=== PATIENT | female | born 1950 | race Caucasian/White ===

== ENCOUNTER 2019-12-08 06:03 | Inpatient (IN) ==
--- NOTE | 2019-12-04 14:36 | Anesthesiology Consultation ---
Date of Service December 04, 2019 Assessment & Plan (1) Encounter for pre-operative examination: Chart Review Chart Review: Acceptable Risk for Surgery and Patient NOT seen in Pre Admission Testing Per nursing assessment 12/04/19, patient resides in [facility]. Has only traveled to [facility] for medical appointments (wore a mask). Pt denies any known contact with PUI/Covid positive patients. No current Covid related symptoms or history of Covid testing History Surgery Operation Date: 12/08/19 10:45 Proposed Procedures p L4-S1 Decompression and Fusion, Spinal Cord Monitoring - Donny Crain DO Height/Weight Height: 5 ft Weight: 48.534 kg Allergies Allergy/AdvReac Type Severity Reaction Status Date / Time No Known Allergies Allergy Verified 12/04/19 13:38 Medications Home Medications Medication Instructions Recorded Confirmed Last Taken atorvastatin 20 mg PO QAM 12/04/19 12/04/19 Unknown calcium carbonate-vitamin D3 1 cap PO QAM 12/04/19 12/04/19 Unknown [Calcium 600 + D(3)] duloxetine 60 mg PO QAM 12/04/19 12/04/19 Unknown etanercept [Enbrel] 50 mg SUBCUT WK 12/04/19 12/04/19 Unknown etodolac 500 mg PO BID 12/04/19 12/04/19 Unknown lisinopril 10 mg PO QAM 12/04/19 12/04/19 Unknown multivitamin 1 tab PO QAM 12/04/19 12/04/19 Unknown omeprazole magnesium [Prilosec OTC] 20 mg PO QAM 12/04/19 12/04/19 Unknown prednisone 5 mg PO QAM 12/04/19 12/04/19 Unknown pregabalin [Lyrica] 75 mg PO BID 12/04/19 12/04/19 Unknown Past Medical History Medical History Chronic back pain Degenerative disc disease Diverticular disease Fallen bladder WEARS PESSARY GERD (gastroesophageal reflux disease) Hyperlipidemia Hypertension Osteoarthritis Past Surgical History Surgical History History of colonoscopy History of hysterectomy History of mandibular surgery PART OF JAW REMOVED ON BOTTOM DUE TO ADVERSE REACTION TO FOSAMAX History of tooth extraction Hx of surgical procedure TUMOR FROM RIGHT BREAST AND LYMPH NODE REMOVED AT SAME TIME 1994 Social History Smoking Status: Current every day smoker tobacco type: cigarettes Smoking cigarettes per day: 1 PPD Do You Dip or Chew Tobacco: No Hx Alcohol Use: No Hx Substance Use: No substance use type: does not use Testing Laboratory Results Laboratory Tests 12/02/19 12/02/19 13:26 13:26 WBC 8.15 Hgb 14.9 Hct 44.9 Plt Count 247 Sodium 138 Potassium 3.9 Chloride 106 Carbon Dioxide 27 BUN 15 Creatinine 0.82 Glucose 117 H 12/02/2019 UA = negative Electrocardiogram Date: 12/02/19 Findings: + NSR @ (82) Right atrial enlargement Chest X-Ray Date: 12/02/19 Findings: + NAD
[~2019-12-08 06:03] MED LIST: ACETAMINOPHEN 500 MG TAB PO SCH; CEFAZOLIN 1000MG 1,000 MG/7.5 ML SYR IV SCH; CeleBREX 200 MG CAP PO SCH; GABAPENTIN 300 MG CAP PO SCH; LR 15ML/HR IV SCH
[2019-12-08] MEDS ORDERED: NEOSTIGMINE METHYLSULFATE 5 MG/5 ML SYR ONE (06:53)
[2019-12-08] MEDS ORDERED: ROCURONIUM BROMIDE 10 MG/ML 5 ML VIAL ONE (06:53)
[2019-12-08] MEDS ORDERED: PROPOFOL IV EMULSION 10 MG/ML 20 ML VIAL IV ONE (06:53)
[2019-12-08] MEDS ORDERED: ONDANSETRON INJ 2 MG/ML 2 ML VIAL ONE (06:53)
[2019-12-08] MEDS ORDERED: LIDOCAINE HCL 2% 2 ML VIAL/AMP(20MG/ML) INFIL ONE (06:53)
[2019-12-08] MEDS ORDERED: DEXAMETHASONE SOD INJ 4 MG/ML VIAL ONE (06:53)
[2019-12-08] MEDS ORDERED: GLYCOPYRROLATE 0.2 MG/ML VIAL ONE (06:53)
[2019-12-08] MEDS ORDERED: HYDROmorphone INJ 2 MG/ML SYR/VIAL ONE (06:54)
[2019-12-08] MEDS ORDERED: BUPIVACAINE/EPINEPHRINE 0.25% 1:200,000 30 ML VIAL ONE (07:02)
[2019-12-08] MEDS ORDERED: BACITRACIN INJ 50,000 UNIT VIAL ONE (07:02)
[2019-12-08] MEDS ORDERED: ATROPINE SULFATE 0.1 MG/ML 10ML SYR IV PRN (07:04)
[2019-12-08] MEDS ORDERED: ePHEDrine sulfate 50 MG/ML AMP IV PRN (07:04)
[2019-12-08] MEDS ORDERED: ONDANSETRON INJ 2 MG/ML 2 ML VIAL IV PRN ×2 (07:04→12:04)
--- NOTE | 2019-12-08 07:40 | History & Physical Bridge Note ---
Date of Service December 08, 2019 History & Physical Bridge Note I have examined the patient, reviewed the History & Physical and in the interval since the performance of the History & Physical I have noted the following changes of clinical significance: no changes noted
--- NOTE | 2019-12-08 07:41 | History & Physical Report ---
Date of Service December 08, 2019 Assessment & Plan (1) Neurogenic claudication due to lumbar spinal stenosis: L4-S1 decompression fusion Present on Admission?: Yes History of Present Illness Chief Complaint: Back and leg pain Primary Care Provider: Darlene Linda DO This is a 68-year-old female that presents with chronic persistent back and leg pain after failing extensive course of nonoperative care she is here for surgical intervention. Allergies Allergy/AdvReac Type Severity Reaction Status Date / Time No Known Allergies Allergy Verified 12/08/19 06:25 Home Medications Home Medications Medication Instructions Recorded Confirmed Type atorvastatin 20 mg PO QAM 12/04/19 12/08/19 History calcium carbonate-vitamin D3 1 cap PO QAM 12/04/19 12/08/19 History [Calcium 600 + D(3)] duloxetine 60 mg PO QAM 12/04/19 12/08/19 History etanercept [Enbrel] 50 mg SUBCUT WK 12/04/19 12/08/19 History etodolac 500 mg PO BID 12/04/19 12/08/19 History lisinopril 10 mg PO QAM 12/04/19 12/08/19 History multivitamin 1 tab PO QAM 12/04/19 12/08/19 History omeprazole magnesium [Prilosec OTC] 20 mg PO QAM 12/04/19 12/08/19 History prednisone 5 mg PO QAM 12/04/19 12/08/19 History pregabalin [Lyrica] 75 mg PO BID 12/04/19 12/08/19 History mecobalamin (vitamin B12) [B12 1,000 mcg PO DAILY 12/08/19 12/08/19 History Active] Past Med/Surg History Medical History Chronic back pain Degenerative disc disease Diverticular disease Fallen bladder WEARS PESSARY GERD (gastroesophageal reflux disease) Hyperlipidemia Hypertension Osteoarthritis Surgical History History of colonoscopy History of hysterectomy History of mandibular surgery PART OF JAW REMOVED ON BOTTOM DUE TO ADVERSE REACTION TO FOSAMAX History of tooth extraction Hx of surgical procedure TUMOR FROM RIGHT BREAST AND LYMPH NODE REMOVED AT SAME TIME 1994 Social History Preferred Language: Maltese Communication Ability: Effective Residential Service Technician Required: No Beliefs That Will Affect Care: None Current Living Situation: Spouse and Family Other Information That Helps Us Care for You: No Feels Safe at Home: Yes Safety Concerns: Feels Safe At This Time Smoking Status: Current every day smoker Tobacco Type: cigarettes ; Cigarettes Per Day: 1 PPD ; Do You Dip or Chew Tobacco: No ; Second Hand Exposure: No ; Tobacco Cessation Education Requested by Patient: No Hx Alcohol Use: No Hx Substance Use: No Physical Exam Physical Exam: Patient is alert and oriented neurologically intact Heart is regular rate and rhythm Lungs clear to auscultation Results & Data Vital Signs (Past 12 Hours) Vital Signs Temp Pulse Resp BP Pulse Ox 12/08/19 06:30 36.8 C 79 18 130/78 99
[2019-12-08] MEDS ORDERED: FLOSEAL HEMOSTATIC MATRIX 10ML TOP ONE (09:47)
--- NOTE | 2019-12-08 10:15 | Operative Report ---
Post Operative Report Pre & Post Diagnosis Operation Date: 12/08/19 07:45 Pre-Op Diagnosis: Lumbar Spinal Stenosis With Neurogenic Claudication Post-Op Diagnosis: Lumbar Spinal Stenosis With Neurogenic Claudication I identified the patient and participated in the time-out.: Yes Procedure Operation Date: 12/08/19 07:45 Actual Procedures #1 lumbar decompression with bilateral medial facetectomies and foraminotomies L3-4, L4-5 and L5-S1. #2 posterior spinal fusion L4-5 L5-S1. #3 placement posterior instrumentation L4-5 L5-S1. #4 interbody fusion L4-5 L5-S1. #5 placement peek cage 8 x 22 mm at L4-5 and 10 x 22 at L5-S1. #6 placement of locally harvested morselized autograft in the posterior lateral gutters per #7 placement infuse collagen sponge, master graft in the posterior lateral gutters and ostial amp and interbody space. Surgeon Donny Crain, Agile Coach Rosita Marie Estimated Blood Loss 100 Findings Consistent with Post-Op Diagnosis Specimens None Indications This is a 68-year-old female that presents with above-mentioned diagnosis after failed extensive course of nonoperative care is here for surgical intervention. Description of Procedure Patient was met with identified informed consent obtained. Patient was then taken to the operative suite underwent an patient placed in a prone position the Amos table on top of the Adarsh frame. All bony prominences well-padded eyes inspected to ensure no external pressure placed upon the. This point the lumbar spine was prepped and draped in normal sterile fashion. Sharp dissection with the assistance of Bovie cautery was performed down to and exposing the lamina transverse processes of L4-L5 and the sacral ala bilaterally. From a caudal cephalad fashion complete laminectomy of L5 L4 was performed including partial laminectomy of L3 including bilateral medial facetectomies and foraminotomies addressing severe spinal stenosis. Pedicle screws were then placed in L4-L5 and the S1 levels bilaterally. And by way of a transforaminal approach on the right a complete discectomy was performed endplates curetted to subcortical any bone and a 10 x 22 mm peek cage filled with osteo-bone graft tapped in position. I then proceeded to L3-4 on the left and again a complete discectomy performed th rough a transforaminal approach. Endplates curetted to subcortical bleeding bone and an 8 x 22 mm peek cage filled with osteo-bone graft tapped in position. The proper sized rods were then placed locked into final position bilaterally. The transverse processes of L4 and L5 and the sacral ala burred to subcortical bleeding bone. Infuse collagen sponge master graft local autograft placed in the posterior lateral gutters. 15 round DONN drain inserted. The incision was then closed with 1 Vicryl in the fascia 2-0 Vicryl subcutaneously and 4 Monocryl for final skin closure. Steri-Strip sterile dressings placed. Patient will continue PACU stable condition. Please note spinal cord monitoring was utilized that the procedure no changes noted. Lastly Rosita Marie was present at the entire procedure involved the patient positioning complex portions of the surgery and final skin closure. I attest to the content of the Intraoperative Record and any orders documented therein. Any exceptions are noted below.
--- NOTE | 2019-12-08 10:22 | Fluoroscopy Report ---
FL lumbar spine 2-3V CLINICAL HISTORY: L4-S1 DECOMPRESSION AND FUSION COMPARISON STUDY: FLUOROSCOPY TIME: 26 seconds. NUMBER OF FLUOROSCOPIC IMAGES: 2 FINDINGS: There is a lumbar scoliosis. Intraoperative fluoroscopic spot images reveal postsurgical ch anges of discectomies interbody fusions at the L4-5 and L5-S1 levels. There is posterior pedicle scre w fixation. IMPRESSION: Postsurgical changes of an L4-S1 spinal decompression and fusion. ACT 112: Negative or not required by law. Electronically signed by: Eric Murray M.D. 12/08/2019 10:21 AM
[2019-12-08] MEDS: fentaNYL citrate 100 MCG/2 ML VIAL IV PRN ×4 (11:01→11:16)
--- NOTE | 2019-12-08 11:58 | Anesthesiology Progress Note ---
Date of Service December 08, 2019 Anesthesia Post Procedure Vital Signs Vital Signs: Temp Pulse Pulse Resp BP Pulse Ox 12/08/19 11:40 98.8 F 96 H 17 106/60 98 12/08/19 11:30 98.8 F 96 H 14 121/62 96 12/08/19 11:20 91 H 11 L 110/64 97 12/08/19 11:10 98 H 13 121/66 98 12/08/19 11:00 100 H 19 122/66 97 12/08/19 10:51 96.8 F L 98 H 16 146/78 H 100 12/08/19 06:30 98.2 F 79 18 130/78 99 Pain Intensity Posterior Back: Pain Intensity: 3 Transfer of Care Handoff Completed per policy Notes Mental Status: alert / awake / arousable and participated in evaluation Patient Amnestic to Procedure: Yes Nausea / Vomiting: adequately controlled Pain: adequately controlled Airway Patency, RR, SpO2: stable & adequate BP & HR: stable & adequate Hydration State: stable & adequate Anesthetic Complications: no major complications apparent and Pt Satisfied with anesthetic care
[2019-12-08] MEDS ORDERED: MAGNESIUM HYDROXIDE SUSP 30 ML UDC PO PRN (12:04)
[2019-12-08] MEDS ORDERED: ONDANSETRON 4 MG OD TAB PO PRN (12:04)
[2019-12-08] MEDS ORDERED: DO NOT ADMINISTER FLU VACCINE PRN (12:04)
[2019-12-08] MEDS ORDERED: NALOXONE HCL 0.4 MG/1 ML VIAL/CARP IV PRN (12:04)
[2019-12-08] MEDS ORDERED: METOCLOPRAMIDE HCL INJ 5 MG/ML 2 ML VIAL IV PRN (12:04)
[2019-12-08] MEDS ORDERED: SOD PHOSPHATE/SOD BIPHOSPHATE ENEMA 132 ML BTL PR PRN (12:04)
[2019-12-08] MEDS ORDERED: ACETAMINOPHEN 500 MG TAB PO PRN (12:04)
[2019-12-08] MEDS ORDERED: HYDROmorphone INJ 0.5 MG/0.5 ML SYR IV PRN (12:04)
[2019-12-08] MEDS ORDERED: ALUMINUM/MAGNESIUM SUSP 30 ML UDC PO PRN (12:04)
[2019-12-08] MEDS ORDERED: bisacodyL 10 MG SUPP PR PRN (12:04)
[2019-12-08] MEDS ORDERED: LORazepam 0.5 MG/1 ML VIAL IV PRN (12:04)
[2019-12-08] MEDS ORDERED: DO NOT ADMINISTER PNEUMOCOCCAL VACCINE PRN (12:04)
[2019-12-08] MEDS ORDERED: LORazepam 0.5 MG TAB PO PRN (12:04)
[2019-12-08] MEDS ORDERED: HYDROmorphone INJ 1 MG/ML SYRINGE IV PRN (12:04)
[2019-12-08] MEDS ORDERED: PROMETHAZINE HCL 12.5 MG in SODIUM CHLORIDE 0.9% 50 ML IV PRN (12:04)
[2019-12-08] MEDS ORDERED: ACETAMINOPHEN 1,000 MG/100 ML VIAL IV PRN (12:04)
[2019-12-08] MEDS ORDERED: FAMOTIDINE 20 MG TAB PO PRN (12:04)
[2019-12-08] MEDS: LACTATED RINGER'S 1,000 ML IV SCH ×2 (13:01→20:43)
--- NOTE | 2019-12-08 13:40 | Hospitalist Consultation ---
Date of Consultation December 08, 2019 Assessment & Plan (1) S/P spinal surgery: (2) Neurogenic claudication due to lumbar spinal stenosis: This is a 68-year-old female with a PMH of hypertension, hyperlipidemia, DDD, psoriatic arthritis on prednisone, tobacco use disorder and other medical problems listed below who is POD#0 s/p lumbar decompression and fusion L3-S1. -POD#0 s/p lumbar decompression and fusion L3-S1 by Dr. Crain. -Patient is feeling well postoperatively -Per ortho for pain control, wound care, anticoagulation and activities -Monitor H&H (EBL: 100ml, DONN output to date: 240ml), continue incentive spirometry, PT/OT when appropriate (3) Hypotension: Patient with positional lightheadedness following surgery. BP currently 98/63. Will increase LR to 125ml/hr and monitor BP closely -Caution with giving narcotics in setting of lower BP -Will also give stress dose of IV hydrocortisone 100mg Q8H with plans to wean tomorrow (4) Psoriatic arthritis: Follows with Dr. Weaver. Takes Enbrel weekly on Sundays, 5mg prednisone daily -Did not take prednisone prior to surgery but was given 8mg decadron (5) Hypertension: BP 98/63 post operatively. Will hold AM dose of lisinopril for now - re- evaluate in AM (6) Hyperlipidemia: Continue atorvastatin (7) GERD (gastroesophageal reflux disease): Continue omeprazole (8) Tobacco use disorder: Nicotine patch ordered PCP: Maddi Dispo: Per primary service Patient seen in collaboration with Dr. Bajwa. Please see addendum. Supervising Physician Co-Signing Physician Notes ATTENDING ADDENDUM: this is a 68 yo F underwent elective spinal decompression surgery lumber spinal stenosis , with neurogenic claudication pt is on chronic PO prednisone for Psoriatic arthritis post op brief epidose of hypotension noted , pt remains asymptomatic stress dose of Hydrocortisone ordered should be able to wean off in next 48 hrs post op and resume PO Josh Bajwa MD History of Present Illness Reason for Consultation: Postop medical management Attending Physician: Donny Crain DO History of Present Illness This is a 68-year-old female with a PMH of hypertension, hyperlipidemia, DDD, psoriatic arthritis on prednisone, tobacco use disorder and other medical problems listed below who is POD#0 s/p lumbar decompression and fusion L3-S1. Patient is feeling well postoperatively. Endorses some surgical site pain but denies dizziness, headache, confusion, chest pain, shortness of breath, nausea, vomiting, abdominal pain, dysuria, diarrhea or constipation. Does have some lightheadedness when she sits up quickly but denies any visual changes. Follows with Dr. Weaver for treatment of psoriatic arthritis with multiple medication s including chronic 5 mg p.o. prednisone daily. PCP is Dr. Linda. Denies any fever, chills, cough, congestion or wheezing. Allergies Allergy/AdvReac Type Severity Reaction Status Date / Time No Known Allergies Allergy Verified 12/08/19 06:25 Home Medications Home Medications Medication Instructions Recorded Confirmed Type atorvastatin 20 mg PO QAM 12/04/19 12/08/19 History calcium carbonate-vitamin D3 1 cap PO QAM 12/04/19 12/08/19 History [Calcium 600 + D(3)] duloxetine 60 mg PO QAM 12/04/19 12/08/19 History etanercept [Enbrel] 50 mg SUBCUT WK 12/04/19 12/08/19 History etodolac 500 mg PO BID 12/04/19 12/08/19 History lisinopril 10 mg PO QAM 12/04/19 12/08/19 History multivitamin 1 tab PO QAM 12/04/19 12/08/19 History omeprazole magnesium [Prilosec OTC] 20 mg PO QAM 12/04/19 12/08/19 History prednisone 5 mg PO QAM 12/04/19 12/08/19 History pregabalin [Lyrica] 75 mg PO BID 12/04/19 12/08/19 History mecobalamin (vitamin B12) [B12 1,000 mcg PO DAILY 12/08/19 12/08/19 History Active] oxycodone 5 mg PO Q6H PRN #30 tab 12/09/19 Rx tramadol 50 mg PO Q6H PRN #30 tab 12/09/19 Rx Patient History Medical History (Updated 12/08/19 @ 13:48 by Lindsay Posey PA-C) Chronic back pain Degenerative disc disease Diverticular disease Fallen bladder WEARS PESSARY GERD (gastroesophageal reflux disease) (Chronic) Hyperlipidemia (Chronic) Hypertension (Chronic) Psoriatic arthritis (Chronic) Tobacco use disorder (Chronic) Surgical History History of colonoscopy History of hysterectomy History of mandibular surgery PART OF JAW REMOVED ON BOTTOM DUE TO ADVERSE REACTION TO FOSAMAX History of tooth extraction Hx of surgical procedure TUMOR FROM RIGHT BREAST AND LYMPH NODE REMOVED AT SAME TIME 1994 Family History Other Heart disease Social History (Updated 12/08/19 @ 13:37 by Lindsay Posey PA-C) Preferred Language: Luxembourger Communication Ability: Effective Deckhand Crab Boat Required: No Beliefs That Will Affect Care: None marital status: Current Living Situation: Spouse and Family Other Information That Helps Us Care for You: No Feels Safe at Home: Yes Safety Concerns: Feels Safe At This Time Smoking Status: Current every day smoker Tobacco Type: cigarettes ; Cigarettes Per Day: 10 ; Do You Dip or Chew Tobacco: No ; Second Hand Exposure: No ; Tobacco Cessation Education Requested by Patient: No Hx Alcohol Use: No Hx Substance Use: No Review of Systems Review of Systems: At least ten systems reviewed and negative except as noted in the HPI. Physical Exam Physical Exam: General Appearance: WD/WN, vitals as above, NAD, sitting up in bed, pleasant, conversing easily Head: normocephalic, atraumatic Eyes: normal inspection, conjunctivae normal, anicteric sclerae ENT: external ear and nose normal, oropharynx normal Neck: trachea midline, no thyromegaly, normal visual inspection Respiratory: normal respiratory effort, lungs clear to auscultation, no wheeze, rales, rhonchi Cardiovascular: regular rate, rhythm, no murmur appreciated, normal peripheral pulses Abdomen/GI: normal bowel sounds, soft, nontender, no hepatosplenomegaly : + Bradley catheter Extremities/Musculoskeletal: +Lumbosacral dressing, DONN drain visualized. No cyanosis or clubbing, extremities motor strength 5/5 Neurologic: PERRL, EOMI, CN's II-XI intact bilaterally and moves all extremities Psychiatric: A+Ox3, euthymic affect Skin: no rashes, normal color, warm/dry Results & Data Results & Data ([facility]) Vital Signs (Past 12 Hours) Vital Signs Temp Pulse Pulse Resp BP Pulse Ox 12/08/19 12:56 95 H 16 98/63 L 95 12/08/19 12:21 95 H 16 99/58 L 96 12/08/19 11:45 36.7 C 100 H 16 99/61 L 95 12/08/19 11:40 37.1 C 96 H 17 106/60 98 12/08/19 11:30 37.1 C 96 H 14 121/62 96 12/08/19 11:20 91 H 11 L 110/64 97 12/08/19 11:10 98 H 13 121/66 98 12/08/19 11:00 100 H 19 122/66 97 12/08/19 10:51 36.0 C L 98 H 16 146/78 H 100 12/08/19 06:30 36.8 C 79 18 130/78 99 Laboratory Results Short CBC 12/08/19 Range/Units 06:28 Blood Type O Positive Antibody Screen NEGATIVE Crossmatch See Detail
[2019-12-08] MEDS: TRAMADOL HCL 50 MG TABLET PO PRN ×2 (13:49→19:42)
[2019-12-08] MEDS: NICOTINE 14 MG/24 HR PATCH TD SCH (13:50)
[2019-12-08] MEDS: HYDROCORTISONE SOD 100 MG in SYRINGE 0 ML IV SCH ×2 (15:20→23:26)
[2019-12-08] MEDS: CEFAZOLIN 1000MG 1,000 MG/7.5 ML SYR IV SCH ×2 (15:54→23:26)
[2019-12-08] MEDS: DOCUSATE SODIUM/SENNA 50/8.6MG TAB PO SCH (20:43)
[2019-12-08] MEDS: PREGABALIN 75 MG CAP PO SCH (20:43)
[2019-12-08] MEDS: OXYCODONE HCL IR 5 MG TAB (IMMEDIATE RELEASE) PO PRN (23:30)
[2019-12-09] MEDS: OXYCODONE HCL IR 5 MG TAB (IMMEDIATE RELEASE) PO PRN ×4 (06:16→22:22)
[2019-12-09] MEDS: HYDROCORTISONE SOD 100 MG in SYRINGE 0 ML IV SCH (06:16)
[2019-12-09] MEDS: POLYETHYLENE (MIRALAX) 17 GM PACK PO SCH ×4 (06:16→23:17)
[2019-12-09 06:26] LABS: Basophils # (auto) 0.01 K/uL (0-0.2); Basophils % (auto) 0.1 %; Eosinophils # (auto) 0.01 K/uL (0-0.5); Eosinophils % (auto) 0.1 %; Hematocrit (blood only) 34.3 % (37-47); Hemoglobin 11.2 g/dL (12.0-16.0); Immature Granulocytes # (auto) 0.02 K/uL (0.00-0.02); Immature Granulocytes % (auto) 0.2 %; Lymphocytes # (auto) 0.88 K/uL (1.2-3.4); Lymphocytes % (auto) 7.4 %; Mean Corpuscular Hemoglobin 31.2 pg (25-34); Mean Corpuscular Hgb Conc 32.7 g/dL (32-36); Mean Corpuscular Volume 95.5 fL (80-100); Mean Platelet Volume 9.6 fL (7.4-10.4); Monocytes # (auto) 0.93 K/uL (0.11-0.59); Monocytes % (auto) 7.8 %; Neutrophils # (auto) 10.04 K/uL (1.4-6.5); Neutrophils % (auto) 84.4 %; Platelet Count 187 K/uL (130-400); RDW Coefficient of Variation 13.7 % (11.5-14.5); RDW Standard Deviation 48.4 fL (36.4-46.3); Red Blood Count 3.59 M/uL (4.2-5.4); White Blood Count 11.89 K/uL (4.8-10.8)
[2019-12-09 06:43] LABS: BUN Creatinine Ratio 9.6 (10-20); Calcium 8.3 mg/dl (8.5-10.1); Creatinine Clr Calc Pharmacy 46.4 ml/min; Est GFR (African American) 85.3; Est GFR (Non-African American) 73.6
--- NOTE | 2019-12-09 08:04 | Hospitalist Progress Note ---
Date of Service December 09, 2019 Assessment & Plan (1) S/P spinal surgery: (2) Neurogenic claudication due to lumbar spinal stenosis: This is a 68-year-old female with a PMH of hypertension, hyperlipidemia, DDD, psoriatic arthritis on prednisone, tobacco use disorder and other medical problems listed below who is POD#1 s/p lumbar decompression and fusion L3-S1. -POD#1 s/p lumbar decompression and fusion L3-S1 by Dr. Crain. -Patient is feeling well postoperatively -Per ortho for pain control, wound care, anticoagulation and activities -Monitor H&H, continue incentive spirometry, pt working w/PT/OT Anemia Acute blood loss anemia Hgb down to 11.2 (from 14.9 pre-op), likely postop, acute blood loss anemia, and d/t IV fluids. - monitor H&H (3) Hypotension: Patient with positional lightheadedness following surgery. BP at that time 98/63. Increased LR to 125ml/hr at that time -Caution with giving narcotics in setting of lower BP -Also gave stress dose of IV hydrocortisone 100mg Q8H with plans to wean today -BP this AM 113/70, no lightheadedness, or dizziness, currently walking w/ PT -monitor BP (4) Psoriatic arthritis: Follows with Dr. Weaver. Takes Enbrel weekly on Sundays, 5mg prednisone daily -Did not take prednisone prior to surgery but was given 8mg decadron (5) Hypertension: BP 98/63 post operatively. Hold AM dose of lisinopril for now - re- evaluate in AM (6) Hyperlipidemia: Continue atorvastatin (7) GERD (gastroesophageal reflux disease): Continue omeprazole (8) Tobacco use disorder: Nicotine patch ordered PCP: Maddi Dispo: Per primary service Admission and Anticipated Discharge Date Admission Date: December 08, 2019 Subjective Hgb down to 11.2 (from 14.9 pre-op), likely postop, acute blood loss anemia, and d/t IV fluids. WBC mildly elevated at 11.9, likely due to steroids. Started on hydrocortisone yesterday due to hypotension. Holding lisinopril this morning. Pt seen while working with PT, pt is walking w/ walker, no complaints. She is urinating but no BM yet. No dizziness, lightheadedness, shortness of breath, or chest pain. No fevers or chills. Review of Systems Review of Systems: All systems reviewed & are unremarkable except as noted in HPI & below Constitutional: no fever and no chills Respiratory: no cough and no dyspnea Cardiovascular: no chest pain and no palpitations Gastrointestinal: no abdominal pain, no nausea and no vomiting Physical Exam Physical Exam: General Appearance: elderly female walking w/ PT w/ walker, in NAD, WD/WN, vitals as above, pleasant, conversing easily Head: normocephalic, atraumatic Eyes: normal inspection, conjunctivae normal, anicteric sclerae ENT: external ear and nose normal, oropharynx normal Neck: trachea midline, no thyromegaly, normal visual inspection Respiratory: normal respiratory effort, lungs clear to auscultation, no wheeze, rales, rhonchi Cardiovascular: regular rate, rhythm, no murmur appreciated, normal peripheral pulses Abdomen/GI: normal bowel sounds, soft, nontender, nondistended : Bradley catheter removed Extremities/Musculoskeletal: +Lumbosacral dressing, DONN drain visualized. No cya nosis or clubbing, extremities motor strength 5/5, walking w/ w/o much difficulty Neurologic: PERRL, EOMI, CN's II-XI intact bilaterally and moves all extremities Psychiatric: A+Ox3, euthymic affect Skin: no rashes, normal color, warm/dry Results & Data Results & Data ([facility]) Vital Signs (Past 12 Hours) Vital Signs Temp Pulse Resp BP Pulse Ox 12/09/19 07:16 36.6 C 71 18 113/70 99 12/09/19 03:12 97 12/09/19 03:11 37.1 C 78 16 117/66 87 L 12/08/19 23:28 36.9 C 78 14 106/63 93 Laboratory Results 12/09/19 12/09/19 12/09/19 Range/Units 06:00 06:00 06:00 WBC 11.89 H (4.8-10.8) K/uL RBC 3.59 L (4.2-5.4) M/uL Hgb 11.2 L (12.0-16.0) g/dL Hct 34.3 L (37-47) % MCV 95.5 (80-100) fL MCH 31.2 (25-34) pg MCHC 32.7 (32-36) g/dL RDW Std Deviation 48.4 H (36.4-46.3) fL RDW Coeff of Emma 13.7 (11.5-14.5) % Plt Count 187 (130-400) K/uL MPV 9.6 (7.4-10.4) fL Immature Gran % (Auto) 0.2 % Neut % (Auto) 84.4 % Lymph % (Auto) 7.4 % Cooke % (Auto) 7.8 % Eos % (Auto) 0.1 % Baso % (Auto) 0.1 % Immature Gran # (Auto) 0.02 (0.00-0.02) K/uL Neut # (Auto) 10.04 H (1.4-6.5) K/uL Lymph # (Auto) 0.88 L (1.2-3.4) K/uL Cooke # (Auto) 0.93 H (0.11-0.59) K/uL Eos # (Auto) 0.01 (0-0.5) K/uL Baso # (Auto) 0.01 (0-0.2) K/uL Sodium 140 (136-145) mmol/L Potassium 4.0 (3.5-5.1) mmol/L Chloride 107 (98-107) mmol/L Carbon Dioxide 30 (21-32) mmol/L Anion Gap 3.0 (3-11) BUN 8 (7-18) mg/dl Creatinine 0.81 (0.6-1.2) mg/dl Est Cr Clr Drug Dosing 46.4 ml/min Est GFR ( Amer) 85.3 Est GFR (Non-Af Amer) 73.6 BUN/Creatinine Ratio 9.6 L (10-20) Glucose 113 H (70-99) mg/dl Calcium 8.3 L (8.5-10.1) mg/dl Hepatitis C Ab Screen Pending Medications Administered Current Inpatient Medications Acetaminophen (Tylenol) 1,000 mg PO Q8H PRN PRN Reason: MILD Pain Scale 1,2,3 & Pre PT Stop: 01/07/20 12:03 Al Hydrox/Mg Hydrox/Simethicone (Maalox) 30 ml PO Q6H PRN PRN Reason: Dyspepsia Stop: 01/07/20 12:03 Atorvastatin Calcium (Lipitor) 20 mg PO QAM [facility] Stop: 01/08/20 08:59 Bisacodyl (Dulcolax) 10 mg SC DAILY PRN PRN Reason: Constipation Stop: 01/07/20 12:03 Cyanocobalamin (Vitamin B-12) 1,000 mcg PO DAILY [facility] Stop: 01/08/20 08:59 Diphenhydramine HCl (Benadryl Capsule) 25 mg PO Q6H PRN PRN Reason: Allergic Rhinitis/Insomnia Stop: 01/07/20 12:03 Duloxetine HCl (Cymbalta) 60 mg PO QAM [facility] Stop: 01/08/20 08:59 Famotidine (Pepcid) 20 mg PO Q12H PRN PRN Reason: Dyspepsia Stop: 01/07/20 12:03 Last Admin: 12/08/19 19:42 Dose: 20 mg Documented by: Hydromorphone HCl (Dilaudid) 0.5 mg IV Q3H PRN PRN Reason: MOD pain (scale 4-6) & Pre PT Stop: 12/22/19 12:03 Hydromorphone HCl (Dilaudid) 1 mg IV Q3H PRN PRN Reason: severe pain (scale 7-10) Stop: 12/22/19 12:03 Hydroxyzine HCl (Vistaril) 25 mg PO Q8H PRN PRN Reason: Anxiety Stop: 01/07/20 12:03 Acetaminophen (Ofirmev) 1,000 mg in 100 mls @ 400 mls/hr IV Q8H PRN PRN Reason: MILD Pain Rating 1,2,3 Stop: 12/09/19 12:03 Promethazine HCl 12.5 mg/ (Sodium Chloride) 50.5 mls @ 204 mls/hr IV Q6H PRN PRN Reason: Nausea &/or Vomiting Stop: 01/07/20 12:03 Lorazepam (Ativan) 0.5 mg in 1 mls @ 0.5 mls/min IV Q8H PRN PRN Reason: Sedation/Anxiety Stop: 01/07/20 12:03 Hydrocortisone Sodium (Succinate 100 mg/ Syringe) 2 mls @ 4 mls/min IV Q8H [facility] Stop: 01/07/20 14:59 Last Admin: 12/09/19 06:16 Dose: 4 mls/min Documented by: Influenza Virus Vaccine Quadrival (Flu Vaccine, Do Not Administer) 1 ea N/A PRN PRN PRN Reason: Notification Stop: 01/07/20 12:03 [facility]) [facility] Stop: 01/08/20 08:59 Lorazepam (Ativan) 0.5 mg PO Q8H PRN PRN Reason: Sedation/Anxiety Stop: 01/07/20 12:03 Magnesium Hydroxide (Milk Of Magnesia) 30 ml PO DAILY PRN PRN Reason: Constipation Stop: 01/07/20 12:03 Metoclopramide HCl (Reglan) 10 mg IV Q6H PRN PRN Reason: Nausea &/or Vomiting Stop: 01/07/20 12:03 Miscellaneous (Remove Nicoderm Patch) 1 ea N/A DAILY@0859 [facility] Stop: 01/08/20 08:58 Multivitamins (Multivitamin Tab) [facility] Stop: 01/08/20 08:59 Multivitamins/Minerals (Caltrate Plus) [facility] Stop: 01/08/20 08:59 Naloxone HCl (Narcan) 0.1 mg IV Q5M PRN; Protocol PRN Reason: Oversedation/Resp Depression Stop: 01/07/20 12:03 Nicotine (Nicoderm Cq) 14 mg TD [facility] Stop: 01/07/20 13:29 Last Admin: 12/08/19 13:50 Dose: Not Given Documented by: Ondansetron HCl (Zofran) 4 mg IV Q6H PRN PRN Reason: Nausea &/or Vomiting Stop: 01/07/20 12:03 Ondansetron HCl (Zofran Odt) 4 mg PO Q6H PRN PRN Reason: Nausea Stop: 01/07/20 12:03 Oxycodone HCl (Roxicodone Immediate Rel) 5 - 10 mg PO Q4H PRN PRN Reason: Moderate-Severe Pain & Pre PT Stop: 12/22/19 12:03 Last Admin: 12/09/19 06:16 Dose: 10 mg Documented by: Pantoprazole Sodium (Protonix) 40 [facility] Stop: 01/08/20 08:59 Pneumococcal Polyvalent Vaccine (Pneumococcal Vacc, Do Not Administer) 1 ea N/A PRN PRN PRN Reason: Notification Stop: 01/07/20 12:03 Polyethylene Glycol (Miralax Powder Packet) 17 gm PO Q6 [facility] Stop: 01/08/20 05:59 Last Admin: 12/09/19 06:16 Dose: Not Given Documented by: Prednisone (Prednisone) 5 mg PO QAM [facility] Stop: 01/08/20 08:59 Pregabalin (Lyrica) 75 mg PO BID [facility] Stop: 01/07/20 20:59 Last Admin: 12/08/19 20:43 Dose: 75 mg Documented by: Senna/Docusate Sodium (Senokot S) 2 tab PO HS [facility] Stop: 01/07/20 20:59 Last Admin: 12/08/19 20:43 Dose: 2 tab Documented by: Sodium Biphosphate/Sodium Phosphate (Fleet Enema) 132 ml SC ONE PRN PRN Reason: Constipation Stop: 01/07/20 12:03 Tramadol HCl (Ultram) 50 - 100 mg PO Q4H PRN PRN Reason: Moderate-Severe Pain & Pre PT Stop: 01/07/20 12:03 Last Admin: 12/08/19 19:42 Dose: 100 mg Documented by:
[2019-12-09] MEDS: DULOXETINE HCL 60 MG CAP PO SCH (08:52)
[2019-12-09] MEDS: CALCIUM 600MG + VIT D 400 IU TAB PO SCH (08:52)
[2019-12-09] MEDS: predniSONE 5 MG TAB PO SCH (08:53)
[2019-12-09] MEDS: MULTIVITAMIN TAB PO SCH (08:53)
[2019-12-09] MEDS: PANTOprazole 40 MG TAB PO SCH (08:53)
[2019-12-09] MEDS: ATORVASTATIN 20 MG TAB PO SCH (08:53)
[2019-12-09] MEDS: NICOTINE 14 MG/24 HR PATCH TD SCH (08:53)
[2019-12-09] MEDS: PREGABALIN 75 MG CAP PO SCH ×2 (08:53→20:23)
[2019-12-09] MEDS: CYANOCOBALAMIN 500 MCG TABLET (VITAMIN B-12) PO SCH (08:54)
[2019-12-09] MEDS ORDERED: lisinopriL 10 MG TAB PO SCH (09:00)
--- NOTE | 2019-12-09 10:05 | Orthopedic Progress Note ---
Date of Service December 09, 2019 Assessment & Plan (1) Neurogenic claudication due to lumbar spinal stenosis: At this time we will continue physical therapy monitor her DONN output hopefully discharge home in the next few days. Present on Admission?: Yes Admission and Anticipated Discharge Date Admission Date: December 08, 2019 Subjective Back pain controlled leg symptoms markedly improved Physical Exam Physical Exam: Patient is in the chair at the bedside. She is good strength testing. Appears comfortable. Results & Data ([facility]) Vital Signs (Past 12 Hours) Vital Signs Temp Pulse Resp BP Pulse Ox 12/09/19 07:16 36.6 C 71 18 113/70 99 12/09/19 03:12 97 12/09/19 03:11 37.1 C 78 16 117/66 87 L 12/08/19 23:28 36.9 C 78 14 106/63 93
[2019-12-09] MEDS: DOCUSATE SODIUM/SENNA 50/8.6MG TAB PO SCH (20:23)
[2019-12-10] MEDS: POLYETHYLENE (MIRALAX) 17 GM PACK PO SCH ×2 (05:36→11:17)
[2019-12-10] MEDS: OXYCODONE HCL IR 5 MG TAB (IMMEDIATE RELEASE) PO PRN ×2 (05:45→11:18)
[2019-12-10 06:56] LABS: Hematocrit (blood only) 33.7 % (37-47); Hemoglobin 11.1 g/dL (12.0-16.0); Mean Corpuscular Hemoglobin 31.4 pg (25-34); Mean Corpuscular Hgb Conc 32.9 g/dL (32-36); Mean Corpuscular Volume 95.5 fL (80-100); Mean Platelet Volume 9.2 fL (7.4-10.4); Platelet Count 174 K/uL (130-400); RDW Coefficient of Variation 13.9 % (11.5-14.5); RDW Standard Deviation 48.7 fL (36.4-46.3); Red Blood Count 3.53 M/uL (4.2-5.4); White Blood Count 8.12 K/uL (4.8-10.8)
[2019-12-10 07:32] LABS: BUN Creatinine Ratio 15.1 (10-20); Calcium 8.4 mg/dl (8.5-10.1); Creatinine Clr Calc Pharmacy 50.8 ml/min; Est GFR (African American) 95.1; Est GFR (Non-African American) 82.1; Magnesium 1.9 mg/dl (1.8-2.4); Phosphorus 1.9 mg/dl (2.5-4.9); Potassium 3.7 mmol/L (3.5-5.1)
[2019-12-10] MEDS ORDERED: POTASSIUM PHOS 3 MMOL/1 ML INFUSION IV STA (07:45)
--- NOTE | 2019-12-10 07:47 | Hospitalist Progress Note ---
Date of Service December 10, 2019 Assessment & Plan (1) S/P spinal surgery: (2) Neurogenic claudication due to lumbar spinal stenosis: This is a 68-year-old female with a PMH of hypertension, hyperlipidemia, DDD, psoriatic arthritis on prednisone, tobacco use disorder and other medical problems listed below who is POD#2 s/p lumbar decompression and fusion L3-S1. -POD#2 s/p lumbar decompression and fusion L3-S1 by Dr. Crain. -Patient is feeling well postoperatively -Per ortho for pain control, wound care, anticoagulation and activities -Monitor H&H, continue incentive spirometry, pt working w/PT/OT Anemia Acute blood loss anemia Hgb down to 11.2 (from 14.9 pre-op), likely postop, acute blood loss anemia, and d/t IV fluids. - monitor H&H, hemoglobin above 11, stable from yesterday (3) Hypotension: Patient with positional lightheadedness following surgery. BP at that time 98/63. Increased LR to 125ml/hr at that time -Caution with giving narcotics in setting of lower BP -Also gave stress dose of IV hydrocortisone 100mg Q8H, stopped yesterday, blood pressure within normal limits -Held lisinopril during this admission -no lightheadedness, or dizziness, even when walking w/ PT -Advised patient to hold lisinopril for next couple of days. She has blood pressure cuff at home, so she can check her blood pressure. Advised her not to take medication if her systolic blood pressure is lower than 110. Also advised the patient to contact her primary care doctor on Saturday and review her blood pressure numbers. (4) Psoriatic arthritis: Follows with Dr. Weaver. Takes Enbrel weekly on Sundays, 5mg prednisone daily -Did not take prednisone prior to surgery but was given 8mg decadron (5) Hypertension: BP 98/63 post operatively. Lisinopril held during his admission BP this morning 103/62 (6) Hyperlipidemia: Continue atorvastatin (7) GERD (gastroesophageal reflux disease): Continue omeprazole (8) Tobacco use disorder: Nicotine patch ordered Hypokalemia, hypophosphatemia -Likely secondary to poor oral intake during admission, and IV fluids -Replaced -Continue to follow-up as outpatient PCP: Maddi Dispo: Per primary service Admission and Anticipated Discharge Date Admission Date: December 08, 2019 Subjective No acute is overnight. Patient sitting up in bed, in no acute distress. Hemoglobin above 11, stable from yesterday. Blood pressure within normal limits, hydrocortisone stopped yesterday. Discussed with the patient to hold lisinopril for next couple of days. And check blood pressure at home. Recommend to keep track of blood pressure numbers and discuss them with primary care doctor on Saturday. She should not take the medication if her systolic blood pressure is below 110. Patient denies any fevers, chills, chest pain, shortness of breath, dizziness, lightheadedness, abdominal pain, nausea or vomiting. Review of Systems Review of Systems: All systems reviewed & are unremarkable except as noted in HPI & below Constitutional: no fever and no chills Respiratory: no cough and no dyspnea Cardiovascular: no chest pain and no palpitations Gastrointestinal: no abdominal pain, no nausea and no vomiting Physical Exam Physical Exam: General Appearance: elderly female sitting up in bed, in NAD, WD/WN, vitals as above, pleasant, conversing easily Head: normocephalic, atraumatic Eyes: normal inspection, conjunctivae normal, anicteric sclerae ENT: external ear and nose normal, oropharynx normal Neck: trachea midline, no thyromegaly, normal visual inspection Respiratory: normal respiratory effort, lungs clear to auscultation, no wheeze, rales, rhonchi Cardiovascular: regular rate, rhythm, no murmur appreciated, normal peripheral pulses Abdomen/GI: normal bowel sounds, soft, nontender, nondistended Extremities/Musculoskeletal: +Lumbosacral dressing, DONN drain visualized. No cyanosis or clubbing, extremities motor strength 5/5, walking w/ w/o much difficulty Neurologic: PERRL, EOMI, CN's II-XI intact bilaterally and moves all extremities Psychiatric: A+Ox3, euthymic affect Skin: no rashes, normal color, warm/dry Results & Data Results & Data ([facility]) Vital Signs (Past 12 Hours) Vital Signs Temp Pulse Resp BP Pulse Ox 12/09/19 23:47 36.8 C 87 18 121/71 94 Laboratory Results 12/10/19 12/10/19 12/09/19 Range/Units 06:44 06:44 06:00 WBC 8.12 (4.8-10.8) K/uL RBC 3.53 L (4.2-5.4) M/uL Hgb 11.1 L (12.0-16.0) g/dL Hct 33.7 L (37-47) % MCV 95.5 (80-100) fL MCH 31.4 (25-34) pg MCHC 32.9 (32-36) g/dL RDW Std Deviation 48.7 H (36.4-46.3) fL RDW Coeff of Emma 13.9 (11.5-14.5) % Plt Count 174 (130-400) K/uL MPV 9.2 (7.4-10.4) fL Sodium 140 (136-145) mmol/L Potassium 3.7 (3.5-5.1) mmol/L Chloride 105 (98-107) mmol/L Carbon Dioxide 32 (21-32) mmol/L Anion Gap 3.0 (3-11) BUN 11 (7-18) mg/dl Creatinine 0.74 (0.6-1.2) mg/dl Est Cr Clr Drug Dosing 50.8 ml/min Est GFR ( Amer) 95.1 Est GFR (Non-Af Amer) 82.1 BUN/Creatinine Ratio 15.1 (10-20) Glucose 104 H (70-99) mg/dl Calcium 8.4 L (8.5-10.1) mg/dl Phosphorus 1.9 L (2.5-4.9) mg/dl Magnesium 1.9 (1.8-2.4) mg/dl Hepatitis C Ab Screen Neg (Neg) Medications Administered Current Inpatient Medications Acetaminophen (Tylenol) 1,000 mg PO Q8H PRN PRN Reason: MILD Pain Scale 1,2,3 & Pre PT Stop: 01/07/20 12:03 Last Admin: 12/09/19 20:23 Dose: 1,000 mg Documented by: Al Hydrox/Mg Hydrox/Simethicone (Maalox) 30 ml PO Q6H PRN PRN Reason: Dyspepsia Stop: 01/07/20 12:03 Atorvastatin Calcium (Lipitor) [place] Stop: 01/08/20 08:59 Last Admin: 12/09/19 08:53 Dose: 20 mg Documented by: Bisacodyl (Dulcolax) 10 mg IA DAILY PRN PRN Reason: Constipation Stop: 01/07/20 12:03 Cyanocobalamin (Vitamin B-12) 1,000 mcg PO DAILY [facility] Stop: 01/08/20 08:59 Last Admin: 12/09/19 08:54 Dose: 1,000 mcg Documented by: Diphenhydramine HCl (Benadryl Capsule) 25 mg PO Q6H PRN PRN Reason: Allergic Rhinitis/Insomnia Stop: 01/07/20 12:03 Duloxetine HCl (Cymbalta) 60 mg PO QAM [facility] Stop: 01/08/20 08:59 Last Admin: 12/09/19 08:52 Dose: 60 mg Documented by: Famotidine (Pepcid) 20 mg PO Q12H PRN PRN Reason: Dyspepsia Stop: 01/07/20 12:03 Last Admin: 12/08/19 19:42 Dose: 20 mg Documented by: Hydromorphone HCl (Dilaudid) 0.5 mg IV Q3H PRN PRN Reason: MOD pain (scale 4-6) & Pre PT Stop: 12/22/19 12:03 Hydromorphone HCl (Dilaudid) 1 mg IV Q3H PRN PRN Reason: severe pain (scale 7-10) Stop: 12/22/19 12:03 Hydroxyzine HCl (Vistaril) 25 mg PO Q8H PRN PRN Reason: Anxiety Stop: 01/07/20 12:03 Promethazine HCl 12.5 mg/ (Sodium Chloride) 50.5 mls @ 204 mls/hr IV Q6H PRN PRN Reason: Nausea &/or Vomiting Stop: 01/07/20 12:03 Lorazepam (Ativan) 0.5 mg in 1 mls @ 0.5 mls/min IV Q8H PRN PRN Reason: Sedation/Anxiety Stop: 01/07/20 12:03 Hydrocortisone Sodium (Succinate 100 mg/ Syringe) 2 mls @ 4 mls/min IV Q8H [facility] Stop: 01/07/20 14:59 Last Admin: 12/09/19 06:16 Dose: 4 mls/min Documented by: Influenza Virus Vaccine Quadrival (Flu Vaccine, Do Not Administer) 1 ea N/A PRN PRN PRN Reason: Notification Stop: 01/07/20 12:03 Lisinopril (Zestril) 10 mg PO QAM [facility] Stop: 01/08/20 08:59 Lorazepam (Ativan) 0.5 mg PO Q8H PRN PRN Reason: Sedation/Anxiety Stop: 01/07/20 12:03 Magnesium Hydroxide (Milk Of Magnesia) 30 ml PO DAILY PRN PRN Reason: Constipation Stop: 01/07/20 12:03 Metoclopramide HCl (Reglan) 10 mg IV Q6H PRN PRN Reason: Nausea &/or Vomiting Stop: 01/07/20 12:03 Miscellaneous (Remove Nicoderm Patch) 1 ea N/A DAILY@0859 [facility] Stop: 01/08/20 08:58 Last Admin: 12/09/19 08:48 Dose: Not Given Documented by: Multivitamins (Multivitamin Tab) 1 tab PO [facility] Stop: 01/08/20 08:59 Last Admin: 12/09/19 08:53 Dose: 1 tab Documented by: Multivitamins/Minerals (Caltrate Plus) 1 tab PO [facility] Stop: 01/08/20 08:59 Last Admin: 12/09/19 08:52 Dose: 1 tab Documented by: Naloxone HCl (Narcan) 0.1 mg IV Q5M PRN; Protocol PRN Reason: Oversedation/Resp Depression Stop: 01/07/20 12:03 Nicotine (Nicoderm Cq) 14 mg TD [facility] Stop: 01/07/20 13:29 Last Admin: 12/09/19 08:53 Dose: 14 mg Documented by: Ondansetron HCl (Zofran) 4 mg IV Q6H PRN PRN Reason: Nausea &/or Vomiting Stop: 01/07/20 12:03 Ondansetron HCl (Zofran Odt) 4 mg PO Q6H PRN PRN Reason: Nausea Stop: 01/07/20 12:03 Oxycodone HCl (Roxicodone Immediate Rel) 5 - 10 mg PO Q4H PRN PRN Reason: Moderate-Severe Pain & Pre PT Stop: 12/22/19 12:03 Last Admin: 12/10/19 05:45 Dose: 10 mg Documented by: Pantoprazole Sodium (Protonix) 40 mg PO [facility] Stop: 01/08/20 08:59 Last Admin: 12/09/19 08:53 Dose: 40 mg Documented by: Pneumococcal Polyvalent Vaccine (Pneumococcal Vacc, Do Not Administer) 1 ea N/A PRN PRN PRN Reason: Notification Stop: 01/07/20 12:03 Polyethylene Glycol (Miralax Powder Packet) 17 gm PO Q6 [facility] Stop: 01/08/20 05:59 Last Admin: 12/10/19 05:36 Dose: 17 gm Documented by: Potassium Phosphate (Potassium Phosphate Replace) 9 mmol IV NOW STA Stop: 12/10/19 07:46 Prednisone (Prednisone) 5 mg PO QAM [facility] Stop: 01/08/20 08:59 Last Admin: 12/09/19 08:53 Dose: 5 mg Documented by: Pregabalin (Lyrica) 75 mg PO BID [facility] Stop: 01/07/20 20:59 Last Admin: 12/09/19 20:23 Dose: 75 mg Documented by: Senna/Docusate Sodium (Senokot S) 2 tab PO HS [facility] Stop: 01/07/20 20:59 Last Admin: 12/09/19 20:23 Dose: 2 tab Documented by: Sodium Biphosphate/Sodium Phosphate (Fleet Enema) 132 ml IA ONE PRN PRN Reason: Constipation Stop: 01/07/20 12:03 Tramadol HCl (Ultram) 50 - 100 mg PO Q4H PRN PRN Reason: Moderate-Severe Pain & Pre PT Stop: 01/07/20 12:03 Last Admin: 12/08/19 19:42 Dose: 100 mg Documented by:
[2019-12-10] MEDS ORDERED: MAGNESIUM OXIDE 400 MG TAB PO ONE (08:00)
[2019-12-10] MEDS ORDERED: POTASSIUM CHLORIDE 20 MEQ TABCR PO ONE (08:00)
[2019-12-10] MEDS ORDERED: POTASSIUM PHOSPHATE 9 MMOL in SODIUM CHLORIDE 0.9% 250 ML IV ONE (08:00)
--- NOTE | 2019-12-10 08:14 | Discharge Summary ---
Date of Service December 10, 2019 Admission HPI Per Admitting Provider This is a 68-year-old female that presents with chronic persistent back and leg pain after failing extensive course of nonoperative care she is here for surgical intervention. Principal Diagnosis Lumbar spinal stenosis with neurogenic claudication Discharge Data Allergies Allergy/AdvReac Type Severity Reaction Status Date / Time No Known Allergies Allergy Verified 12/08/19 06:25 Consultations 12/08/19 12:04 Consult Case Management - Discharge Planning Routine Consult Hospitalist Routine Procedures Performed Operation Date: 12/08/19 07:45 Actual Procedures p L4-S1 Decompression and Fusion, with Interbody fusion at L4-5 and L5-S1, with use of Bone morphogenetic Protein, and Spinal Cord Monitoring(Not Applicable) - Donny Crain DO Ordered Studies 12/08/19 07:45 FL fluoroscopy <1hr Routine FL lumbar spine 2-3V Routine Hospital Course (1) Neurogenic claudication due to lumbar spinal stenosis: Patient underwent multilevel lumbar decompression fusion tolerated as well as taken to the orthopedic floor postoperative. Postop day #1 he was up and ambulating secondary to continue to improve. Excellent strength testing. Pain well controlled. Subsequently discharged home. Discharge orders instructions from the chart for further review. Total Time Total Time Spent Total Time Spent (In Minutes): 20 minutes Discharge Plan Discharge Items Patient Disposition: Home - Self-Care Reason For Visit: LUMBAR SPINAL STENOSIS W NEUROGENIC CLAUDICATION Discharge Diagnosis: Lumbar spinal stenosis with neurogenic claudication Activity: As commented below Non-emergency contact: Primary Care Provider Call non-emergency contact if: you have any medication questions Follow-up/Referrals: Darlene Linda DO [Primary Care Provider] - Diet: Regular Addtl Attending Provider Instructions: ACTIVITY RECOMMENDATIONS: SELF CARE INSTRUCTIONS AFTER CERVICAL FUSIONS 1. No smoking. Smoking drastically decreases the chance of a solid fusion. 2. No bending, lifting more than 5 pounds, or twisting (roll like a log when turning in bed). 3. You may shower 3 days after surgery. Thoroughly dry wound. Do not soak in the tub. 4. Cervical collar: Must be worn at all times including sleeping. You may remove the brace only to bath, eat and if you are sitting in a recliner. 5. Please walk as much as you can for exercise. Gradually increase the distance that you walk as your endurance increases. SPECIAL CARE INSTRUCTIONS: VERY IMPORTANT TO READ AND REVIEW A. Do not take any anti-inflammatory medications (i.e. Indocin, Advil, Aspirin, Naprosyn, Aleve, Motrin, etc.) as these may inhibit the chance of a solid fusion. Tylenol is okay to take. B. Your surgical incision has been closed with a cosmetic suture under the skin that will dissolve in about 6 weeks. In 14 days, you can use a pair of clean scissors and cut the suture that is left outside of the skin at the ends of your incision. C. Complications are uncommon, but please contact us if you have any signs or symptoms of: 1. wound infection (fever higher than 102.5 degrees F, redness, separation of wound, drainage, or increasing pain from the incision) 2. blood clots in legs (pain, swelling, redness and warmth in legs) 3. urinary tract infection (fever higher than 102.5 degrees, burning upon urination or increased frequency of urination) 4. nerve problems (inability to walk on your toes or heels, numbness, loss of bowel or bladder control) 5. any other symptoms that concern you. D. Please call the office at if you have any concerns or questions about your operation or recovery. MANAGING PAIN AFTER SPINAL SURGERY 1. Narcotic medication is intended for short-term use and will be provided for surgical pain. Surgical pain usually lasts for a period of 4-6 weeks. Narcotic medication includes Percocet, Vicodin, Darvocet, Tylenol #3 or Lortab. 2. Longer-term pain is more appropriately treated with non-narcotic medication such as Tylenol ES. 3. Muscle spasm is not appropriately treated with narcotics. Muscle relaxers such as Soma, Flexeril or Skelaxin can be used along with Tylenol ES. 4. Remember that we all live with some "aches and pains". This is not unusual or uncommon after an injury or as we get older. 5. We will provide appropriate medication within the normal guidelines of their prescribed use. We will also be very cautious and aware of potential abuse and extended duration of patients' medication needs. 6. Please allow 2-3 days to process refills. Prescriptions will not be mailed but must be picked up at the office. FOLLOW UP VISIT: Keep your scheduled follow-up appointment. Any questions, please call the office at . Pending Studies at Discharge: No Stand-Alone Forms: My [facility], Smoking Cessation Medications and DC Order Prescriptions: New tramadol 50 mg tablet 50 mg PO Q6H PRN (Reason: pain, moderate) Qty: 30 RF: 0 oxycodone 5 mg tablet 5 mg PO Q6H PRN (Reason: pain, severe) Qty: 30 RF: 0 Continued multivitamin Tablet 1 tab PO QAM RF: 0 atorvastatin 20 mg Tablet 20 mg PO QAM RF: 0 prednisone 5 mg Tablet 5 mg PO QAM RF: 0 etodolac 500 mg Tablet Extended Release 24 Hr 500 mg PO BID RF: 0 lisinopril 10 mg Tablet 10 mg PO QAM RF: 0 omeprazole magnesium [Prilosec OTC] 20 mg Tablet,Delayed Release (Dr/Ec) 20 mg PO QAM RF: 0 duloxetine 60 mg Capsule,Delayed Release(Dr/Ec) 60 mg PO QAM RF: 0 Enbrel 50 mg/mL (1 mL) Syringe 50 mg SUBCUT WK RF: 0 Calcium 600 + D(3) 600 mg calcium- 200 unit Capsule 1 cap PO QAM RF: 0 pregabalin [Lyrica] 75 mg Capsule 75 mg PO BID RF: 0 B12 Active 1,000 mcg Tablet,Chewable 1,000 mcg PO DAILY RF: 0 Discharge Orders: Discharge Order (Routine); Ordered 12/10/19 Ordered By: Donny Crain Admission Data Admit Date/Time: 12/08/19 11:07 Attending Provider: Donny Crain Admit Provider: Donny Crain Primary Care Provider: Darlene Linda Other Providers: Dimitris Rosado
[2019-12-10] MEDS ORDERED: DEXAMETHASONE SOD PHOSPHATE 6 MG in SYRINGE 0 ML IV ONE (08:30)
[2019-12-10] MEDS: PREGABALIN 75 MG CAP PO SCH (08:43)
[2019-12-10] MEDS: DULOXETINE HCL 60 MG CAP PO SCH (08:43)
[2019-12-10] MEDS: CALCIUM 600MG + VIT D 400 IU TAB PO SCH (08:43)
[2019-12-10] MEDS: ATORVASTATIN 20 MG TAB PO SCH (08:43)
[2019-12-10] MEDS: PANTOprazole 40 MG TAB PO SCH (08:44)
[2019-12-10] MEDS: predniSONE 5 MG TAB PO SCH (08:44)
[2019-12-10] MEDS: MULTIVITAMIN TAB PO SCH (08:44)
[2019-12-10] MEDS: NICOTINE 14 MG/24 HR PATCH TD SCH (08:44)
[2019-12-10] MEDS: CYANOCOBALAMIN 500 MCG TABLET (VITAMIN B-12) PO SCH (08:44)
[2019-12-10] MEDS: TRAMADOL HCL 50 MG TABLET PO PRN (13:48)
== END 2019-12-10 14:43 | disposition home or self-care (01) | DRG 454 ==
LOC: ASU 06:03 → 3E 11:07